=== PATIENT | female | born 1940 | race Caucasian/White ===

== ENCOUNTER 2019-06-07 07:25 | Inpatient (IN) | payer MEDICARE, OTHER ==
[2019-06-02 11:00] LABS: BASOPHILS % (AUTO) 0.6 % (0-1); EOSINOPHILS # (AUTO) 0.2 X10'3 (0-0.9); LYMPHOCYTES # (AUTO) 0.7 X10'3 (1.1-4.8); LYMPHOCYTES % (AUTO) 18.2 % (21-51); MEAN CORPUSCULAR HEMOGLOBIN 31.3 PG (27.0-31.0); MEAN CORPUSCULAR HGB CONC 34.4 g/dL (33.0-36.5); MEAN CORPUSCULAR VOLUME 91.1 FL (78-98); MEAN PLATELET VOLUME 7.3 FL (7.4-10.4); MONOCYTES # (AUTO) 0.4 X10'3 (0-0.9); MONOCYTES % (AUTO) 11.4 % (2-12); NEUTROPHILS # (AUTO) 2.6 X10'3 (1.8-7.7); NEUTROPHILS % (AUTO) 65.8 % (42-75); PRE OP HEMATOCRIT 35.7 % (35.0-45.0); PRE OP HEMOGLOBIN 12.3 g/dL (12.0-16.0); PRE OP PLATELET COUNT 239 X10'3 (140-440); RED BLOOD COUNT 3.92 X10'6 (4.20-5.60); RED CELL DISTRIBUTION WIDTH 16.6 % (11.5-14.5)
[2019-06-02 11:21] LABS: ALBUMIN 3.8 G/DL (3.4-5.0); ALBUMIN/GLOBULIN RATIO 1.2 (1.1-1.5); ALKALINE PHOSPHATASE 87 IU/L (46-116); BLOOD UREA NITROGEN 18 MG/DL (7-18); BUN/CREATININE RATIO 27.3 (6.6-38.0); CALCIUM 8.2 MG/DL (8.5-10.1); CHLORIDE 107 MMOL/L (99-107); CREATININE 0.66 MG/DL (0.40-0.90); PRE OP ALT 24 U/L (30-65); PRE OP ANION GAP 8 (8-16); PRE OP AST 19 U/L (10-37); PRE OP BILIRUB, TOTAL 0.6 MG/DL (0.0-1.0); PRE OP GLUCOSE 128 MG/DL (70-104); PRE OP SODIUM 143 MMOL/L (135-145); TOTAL CARBON DIOXIDE 27.6 MMOL/L (24-32); eGFR 87 ML/MIN
[2019-06-02 11:22] LABS: PRE OP PROTIME 10.6 SECONDS (9.0-12.0)
[2019-06-02 11:23] LABS: PRE OP POTASSIUM 3.2 MMOL/L (3.4-5.1)
[2019-06-07] VITALS (22 sets, daily range): BP systolic 100–152; BP diastolic 52–85
[~2019-06-07] VITALS: Ht 157.5 cm; Wt 81.6 kg
[~2019-06-07 07:25] MED LIST: ACET-1008 PO; DOCUMENT DATE & TIME OF BETA-BLOCKER PO ONE; DULO60CA65 PO; HYDROmorphone 1 mg/ml syringe IV PRN; HYDROmorphone inj. 0.5 MG/0.5 ML DISP.SYRIN IV PRN; ISOS30TA6 PO; LABE100T5 PO; PANT40TA4 PO; acetaminophen 325mg tablet PO ONE; acetaminophen 325mg tablet PO PRN; cefazolin/dext.iso 2gm/100 ML IV ONE; celeCOXIB 100mg capsule PO ONE; diphenhydrAMINE 25mg capsule PO PRN; famotidine 20mg tablet PO ONE; gabapentin 300mg capsule PO ONE; magnesium hydroxide 30ml (MOM) UD suspension PO PRN; metoclopramide 5 mg/ml inj IV ONE; ondansetron/PF 4mg/2ml inj IV PRN; oxyCODONE SR 10mg (sust. release) tab -2 tabs (20mg) PO ONE; ringers solution, lacted 1,000 ML IV SCH; tranexamic acid inj. 1,000 MG in normal saline 100 ML IV ONE; vancomycin inj 1,500 MG in normal saline 300ml IV soln IV ONE
[2019-06-07] MEDS ORDERED: tetracaine 1% (10mg/ml) pres. free inj. ONE (09:06)
[2019-06-07 09:51] LABS: ISTAT ANION GAP 13 (8-12); ISTAT BUN 25 mg/dL (6-19); ISTAT CL 102 mmol/L (99-107); ISTAT CREATININE 0.5 mg/dL (0.6-1.1); ISTAT GLUCOSE 132 mg/dL (70-104); ISTAT HGB 11.9 g/dl (12.0-16.0); ISTAT Hct 35 %PCV (35-48); ISTAT IONIZED CALCIUM 1.18 mmol/L (1.03-1.32); ISTAT K 3.6 mmol/L (3.5-5.1); ISTAT NA 142 mmol/L (135-145); ISTAT TOTAL CO2 27 mmol/L (24-32); ISTAT eGFR > 90 ML/MIN
[2019-06-07] MEDS ORDERED: cloNIDine hcl/PF 100mcg/ml inj ONE (10:57)
[2019-06-07] MEDS ORDERED: epiNEPHrine 1 mg/ml inj ONE (10:57)
[2019-06-07] MEDS ORDERED: vancomycin 1,000mg inj ONE (10:57)
[2019-06-07] MEDS ORDERED: ROPIVAcaine 0.5% (5mg/ml) 30ml vial ONE (10:57)
[2019-06-07] MEDS ORDERED: ketorolac trometh. 30mg/ml inj. ONE (10:57)
[2019-06-07] MEDS ORDERED: MIDAZolam 5mg/5ml vial ONE (10:58)
[2019-06-07] MEDS ORDERED: fentaNYL/PF 50MCG/1 ML 2ML syringe ONE (10:58)
[2019-06-07] MEDS ORDERED: ringers solution, lacted 1,000 ML IV SCH (11:10)
[2019-06-07] MEDS ORDERED: fentaNYL/PF 50MCG/1 ML 2ML syringe IV PRN ×2 (11:10)
[2019-06-07] MEDS ORDERED: hydrALAZINE 20mg/ml inj. IV PRN (11:10)
[2019-06-07] MEDS ORDERED: labetalol 20mg/4ml (5mg/ml) syringe IV PRN (11:10)
[2019-06-07] MEDS ORDERED: morphine 4 MG/ML inj SYRINge IV PRN ×2 (11:10)
[2019-06-07] MEDS ORDERED: ondansetron/PF 4mg/2ml inj IV PRN ×2 (11:10→11:15)
[2019-06-07] MEDS ORDERED: fentaNYL /PF 50mcg/ml 5ml ampule ONE (11:14)
[2019-06-07] MEDS ORDERED: diphenhydrAMINE 50 mg/ml inj IV PRN (11:15)
--- NOTE | 2019-06-07 12:03 | NUR ---
Received from OR via , accompanied by Anesthesiologist DR STONE and report given by Anesthesiolgist. AWAKENS TO VOICE. VITALS STABLE. DRESSING DI. CHELE PAIN. SENSATION AT MID CHEST. [place] WITH CLEAR URINE.
--- NOTE | 2019-06-07 13:22 | NUR ---
Report called to receiving nurse. Transferred via BED Belongings . Special Issues communicated to receiving nurse. AWAKE AND ORIENTED. VITALS STABLE. DRESSING DI. CHELE PAIN. TO ORTHO RM [id number] AT THIS TIME.
[2019-06-07] MEDS: potassium cl 20mEq in 1/2 NS 1,000 ML IV SCH ×3 (14:11→23:47)
[2019-06-07] MEDS: cefazolin/dext.iso 2gm/100ml 100 ML IV SCH ×2 (15:53→23:47)
[2019-06-07] MEDS: HYDROcodone/acetaminophen 10/325mg tab PO PRN ×2 (17:12→21:46)
[2019-06-07] MEDS ORDERED: tranexamic acid inj. 800 MG in normal saline 100ml IV soln 100 ML IV ONE (18:00)
[2019-06-07] MEDS: labetalol 100mg tablet PO SCH (20:40)
[2019-06-07] MEDS: ascorbic acid 500mg tablet PO SCH (20:40)
[2019-06-07] MEDS: pantoprazole 40mg Tablet.DR PO SCH (20:40)
[2019-06-07] MEDS ORDERED: non-formulary drug (Duloxetine HCl 60 MG) PO SCH (21:00)
[2019-06-07] MEDS: duloxetine 30mg CAPSULE.DR PO SCH (21:01)
[2019-06-07] MEDS: gabapentin 300mg capsule PO SCH (21:02)
[2019-06-07] MEDS: sennosides 8.6mg tablet PO SCH (21:02)
[2019-06-08 02:00] VITALS: BP 138/85
[2019-06-08] MEDS: HYDROcodone/acetaminophen 10/325mg tab PO PRN ×4 (05:15→19:10)
[2019-06-08 06:00] VITALS: BP 128/70
--- NOTE | 2019-06-08 06:00 | NUR ---
Patient in room ORTHO 4023. I have received report from Edin MARTÍNEZ and had the opportunity to ask questions and assume patient care.
--- NOTE | 2019-06-08 06:28 | NUR ---
reported to days. note pt up in chair. pain meds given [id number]
[2019-06-08 06:35] LABS: ANION GAP 11 (8-16); CHLORIDE 102 MMOL/L (99-107); POTASSIUM 4.3 MMOL/L (3.5-5.1); SODIUM 138 MMOL/L (135-145); TOTAL CARBON DIOXIDE 24.8 MMOL/L (24-32)
[2019-06-08 06:37] LABS: BASOPHILS % (AUTO) 0.1 % (0-1); EOSINOPHILS % (AUTO) 0 % (0-6); HEMATOCRIT 31.4 % (35.0-45.0); HEMOGLOBIN 10.7 g/dl (12.0-16.0); LYMPHOCYTES # (AUTO) 0.5 X10'3 (1.1-4.8); LYMPHOCYTES % (AUTO) 4.6 % (21-51); MEAN CORPUSCULAR HEMOGLOBIN 31.6 PG (27.0-31.0); MEAN CORPUSCULAR VOLUME 92.9 FL (78-98); MONOCYTES # (AUTO) 0.9 X10'3 (0-0.9); MONOCYTES % (AUTO) 9.2 % (2-12); NEUTROPHILS # (AUTO) 8.8 X10'3 (1.8-7.7); NEUTROPHILS % (AUTO) 86.1 % (42-75); PLATELET COUNT 317 X10'3 (140-440); RED BLOOD COUNT 3.39 X10'6 (4.20-5.60); RED CELL DISTRIBUTION WIDTH 16.6 % (11.5-14.5); WHITE BLOOD COUNT 10.3 X10'3 (4.5-11.0)
[2019-06-08] MEDS ORDERED: bisacodyl 10mg suppository rectal RC PRN (08:00)
[2019-06-08] MEDS: multivitamins, therapeutics tablet PO SCH (08:39)
[2019-06-08] MEDS: labetalol 100mg tablet PO SCH ×2 (08:39→19:09)
[2019-06-08] MEDS: isosorbide mononitrate 30mg tab.SR.24H PO SCH (08:39)
[2019-06-08] MEDS: gabapentin 300mg capsule PO SCH ×3 (08:39→21:53)
[2019-06-08] MEDS: ascorbic acid 500mg tablet PO SCH ×2 (08:39→19:05)
[2019-06-08] MEDS: pantoprazole 40mg Tablet.DR PO SCH ×2 (08:39→19:05)
[2019-06-08 10:00] VITALS: BP 103/38
[2019-06-08] MEDS: potassium cl 20mEq in 1/2 NS 1,000 ML IV SCH ×2 (10:27→14:25)
[2019-06-08 14:00] VITALS: BP 110/64
--- NOTE | 2019-06-08 14:09 | NUR ---
Joint replacement consult: Pt seen by RD for written/verbal high protein ed. RD reviewed high protein needs for wound healing, immune strength, high protein foods, and protein supplementation options. RD contact information provided in case of further questions. Pt agrees to chocolate ensure pudding TIDWM, cottage cheese and fruit w/ breakfasts; dietary notified. Pt reports only eats 2 premier protein bars and drinks one premier protein shake at home for total daily kcal intake. RD encouraged increasing both total protein and kcal intake as well as wider food options and variety in order to optimize wound healing. Addendum: 06/08/19 at [address] Amended: Links added.
[2019-06-08 18:00] VITALS: BP 107/54
--- NOTE | 2019-06-08 18:31 | NUR ---
Problems reprioritized. Patient report given, questions answered & plan of care reviewed with Edin MARTÍNEZ.
[2019-06-08] MEDS: duloxetine 30mg CAPSULE.DR PO SCH (21:53)
[2019-06-08] MEDS: sennosides 8.6mg tablet PO SCH (21:53)
[2019-06-08 22:00] VITALS: BP 134/74
[2019-06-09] MEDS: potassium cl 20mEq in 1/2 NS 1,000 ML IV SCH (01:53)
[2019-06-09] MEDS: HYDROcodone/acetaminophen 10/325mg tab PO PRN ×3 (03:25→12:13)
[2019-06-09 06:00] VITALS: BP 108/54
[2019-06-09 06:13] LABS: BASOPHILS % (AUTO) 0.6 % (0-1); EOSINOPHILS # (AUTO) 0.2 X10'3 (0-0.9); EOSINOPHILS % (AUTO) 2.8 % (0-6); HEMATOCRIT 26.4 % (35.0-45.0); HEMOGLOBIN 9.1 g/dl (12.0-16.0); LYMPHOCYTES # (AUTO) 0.9 X10'3 (1.1-4.8); LYMPHOCYTES % (AUTO) 16.6 % (21-51); MEAN CORPUSCULAR HEMOGLOBIN 31.5 PG (27.0-31.0); MEAN CORPUSCULAR HGB CONC 34.3 g/dL (33.0-36.5); MEAN CORPUSCULAR VOLUME 91.8 FL (78-98); MEAN PLATELET VOLUME 7.6 FL (7.4-10.4); MONOCYTES # (AUTO) 0.6 X10'3 (0-0.9); MONOCYTES % (AUTO) 10.9 % (2-12); NEUTROPHILS # (AUTO) 3.8 X10'3 (1.8-7.7); NEUTROPHILS % (AUTO) 69.1 % (42-75); PLATELET COUNT 217 X10'3 (140-440); RED BLOOD COUNT 2.88 X10'6 (4.20-5.60); RED CELL DISTRIBUTION WIDTH 16.6 % (11.5-14.5); WHITE BLOOD COUNT 5.5 X10'3 (4.5-11.0)
--- NOTE | 2019-06-09 06:52 | NUR ---
reported to days. noted pt awaiting discharge to rehab or home. PT to work with pt.
--- NOTE | 2019-06-09 07:12 | NUR ---
Patient in room ORTHO 4023. I have received report from Juno MARTÍNEZ and had the opportunity to ask questions and assume patient care.
[2019-06-09] MEDS: multivitamins, therapeutics tablet PO SCH (07:58)
[2019-06-09] MEDS: ascorbic acid 500mg tablet PO SCH (07:58)
[2019-06-09] MEDS: gabapentin 300mg capsule PO SCH ×2 (07:59→12:12)
[2019-06-09] MEDS: labetalol 100mg tablet PO SCH (07:59)
[2019-06-09] MEDS: pantoprazole 40mg Tablet.DR PO SCH (07:59)
[2019-06-09] MEDS: isosorbide mononitrate 30mg tab.SR.24H PO SCH (08:00)
[2019-06-09] MEDS ORDERED: aspirin 325mg tablet PO SCH (08:30)
[2019-06-09 10:00] VITALS: BP 108/54
--- NOTE | 2019-06-09 13:45 | NUR ---
Patient discharged to home, patient stable upon discharge, patient educated on mallika dressing and incision care
== END 2019-06-09 13:15 | disposition home or self-care (01) | DRG 470 ==
LOC: PAS IN 07:25 → EDSTATUS 10:30 → ORTHO 4S 13:45
PROVIDERS: ADMIT Orthopaedic Surgery; ATTEND Orthopaedic Surgery
PROC: 0SRB06Z Replacement of Left Hip Joint with Oxidized Zirconium on Polyethylene Synthetic Substitute, Open Approach (ICD-10-PCS; principal; 2019-06-07 10:10)
DX: M16.12 Unilateral primary osteoarthritis, left hip (principal); D62 Acute posthemorrhagic anemia; E66.9 Obesity, unspecified; K21.9 Gastro-esophageal reflux disease without esophagitis; I10 Essential (primary) hypertension; G47.30 Sleep apnea, unspecified; F32.9 Major depressive disorder, single episode, unspecified; Z79.82 Long term (current) use of aspirin; Z68.32 Body mass index [BMI] 32.0-32.9, adult; Z91.040 Latex allergy status; Z82.3 Family history of stroke; Z84.89 Family history of other specified conditions; Z79.899 Other long term (current) drug therapy
CPT/HCPCS: 36415; 71046; 72170; 80047; 80051; 80053; 85025; 85610; 85730; 86885; 86900; 86901; 86902; 86905; 86922; 87081; 93005; 97110; 97116; 97162; 97530; A4615; A7000; C1758; C1776; G0378; J0171; J0735; J1170; J1885; J2250; J2765; J2795; J3010; J3370; J3480; J7120